=== PATIENT | female | born 1950 | race Two or more races ===

== ENCOUNTER 2017-09-05 14:52 | Day surgery (SDC) | payer MEDICARE ==
[2017-09-05] MEDS ORDERED: LIDOCAINE 2% (SDV) 5 ML INJ (16:23)
[2017-09-05] MEDS ORDERED: PROPOFOL 40 ML (16:23)
[2017-09-05] MEDS ORDERED: EPHEDrine SULFATE 50 MG/5 ML SYG (16:52)
[2017-09-05] MEDS ORDERED: PHENYLephrine (100 MCG/ML) 5ML SYG (16:55)
[2017-09-05] MEDS ORDERED: GLYCOPYRROLATE 0.4 MG INJ (16:56)
== END 2017-09-05 17:41 | disposition home or self-care (01) ==
LOC: GIL 14:52
DX: Z12.11 Encounter for screening for malignant neoplasm of colon (principal); K57.30 Diverticulosis of large intestine without perforation or abscess without bleeding; K64.8 Other hemorrhoids
CPT/HCPCS: 45378